=== PATIENT | female | born 1980 | race Asian ===

== ENCOUNTER 2022-01-02 14:10 | Outpatient (CLI) | payer BC, SELFPAY ==
[2022-01-02 14:25] LABS: Chloride* 104 mmol/L (96-114)
[2022-01-02 14:26] LABS: Sodium* 136 mmol/L (135-149)
[2022-01-02 14:28] LABS: Carbon Dioxide* 21 mmol/L (20-32); Cholesterol* 191 mg/dL (90-199); Creatinine* 0.5 mg/dL (0.5-1.5); Estimated Glomerular Filt Rate 122 ml/min
[2022-01-02 14:29] LABS: Blood Urea Nitrogen* 7 mg/dL (5-24); Calcium* 9.2 mg/dL (8.4-10.6); Glucose* 99 mg/dL (60-115); HDL Cholesterol* 93 mg/dL (>=50); LDL Cholesterol Calculated 66 mg/dL (<100); Triglycerides* 158 mg/dL (40-149)
== END 2022-01-02 14:11 | disposition home or self-care (01) ==
PROVIDERS: PCP Physician Assistant Medical; Visit Provider Physician Assistant Medical
DX: Z01.419 Encounter for gynecological examination (general) (routine) without abnormal findings (principal); Z13.6 Encounter for screening for cardiovascular disorders
CPT/HCPCS: 80048; 80061

== ENCOUNTER 2023-01-08 10:06 | Outpatient (CLI) | payer BC, SELFPAY | END 2023-01-08 10:07 | disposition home or self-care (01) | LOC: NFLDREF 01-11 21:52 | PROVIDERS: PCP Physician Assistant Medical; Referring Provider Physician Assistant Medical; Visit Provider Physician Assistant Medical | DX: E05.90 Thyrotoxicosis, unspecified without thyrotoxic crisis or storm (principal); E86.0 Dehydration; R50.9 Fever, unspecified; R00.0 Tachycardia, unspecified | CPT/HCPCS: 80053; 80061; 84443; 87086 ==

== ENCOUNTER 2023-01-20 13:19 | Emergency (ER) | payer BC, SELFPAY ==
[2023-01-20 13:30] VITALS: BP 127/94; PULSE 92; RESP 16; TEMP 36.6; O2SAT 98; BMI 27.5
[2023-01-20] MEDS: LACTATED RINGERS 1000 ML 1,000 ML IV (14:10)
[2023-01-20] MEDS: MECLIZINE HCL 25 MG TABLET PO (14:10)
[2023-01-20] MEDS: diphenhydrAMINE 50 MG/ML inj 25 MG IVP (14:10)
[2023-01-20] MEDS: KETOROLAC 15 MG/ML inj IVP (14:10)
[2023-01-20] MEDS: METOCLOPRAMIDE HCL 5 MG/ML INJ 10 MG IVP (14:11)
--- NOTE | 2023-01-20 15:00 | ED_ITS ---
HPI - General Adult General Date Seen: 01/20/23 Chief complaint: Dizziness/Vertigo Stated complaint: Dizzy, lightheaded Time Seen by Provider: 01/20/23 13:44 Source: patient Mode of arrival: ambulatory Limitations: no limitations History of Present Illness HPI narrative: Patient is a 42-year-old female with no pertinent medical problems presenting for dizziness and headache. She states last night she started having episodic dizziness when she stands and moves suddenly. When she sits still she is having no symptoms in the symptoms are also intermittent even when she is up moving around. States symptoms started gradually. Patient states symptoms persisted today now she is also having headache. She describes as band around her head that starts in the back of her head. The states she has had headaches like this before. Currently she does not feel dizzy in her bed. She does note a couple weeks goes she had a upper respiratory infection. She was COVID/flu/RSV negative at that time. The fatigue has persisted. Denies fevers, chills, chest pain, shortness of breath, lightheadedness, abdominal pain, nausea/vomiting. Related Data Previous Rx's Medication Instructions Recorded albuterol sulfate 90 mcg/actuation 2 puff inhalation Q6H PRN 01/08/23 aerosol inhaler (Ventolin HFA) shortness of breath or wheezing #8.5 grams codeine 10 mg-guaifenesin 100 mg/5 10 ml PO Q4-6H PRN cough #473 mL 01/08/23 mL oral liquid doxycycline hyclate 100 mg tablet 100 mg PO BID #20 tabs 01/11/23 prednisone 20 mg tablet See Rx Instructions PO QDAY #18 01/11/23 tabs meclizine 25 mg tablet 25 mg PO BID-QID PRN dizziness #14 01/20/23 tabs Allergies Allergy/AdvReac Type Severity Reaction Status Date / Time No Known Drug Allergies Allergy Verified 01/11/23 10:10 Review of Systems Status of ROS: Reports: 10 or more systems reviewed and unremarkable except as noted in History and below PFSH PFS Medical History Family history of breast cancer ?Z80.3 - Family history of malignant neoplasm of breast (ICD-10) Hypertension affecting ?O16.9 - Unspecified maternal hypertension, unspecified trimester (ICD-10) Family History Maternal Grandmother Breast cancer Aunt Breast cancer Sister Breast cancer Family/Other Diabetes Thyroid disease Epilepsy Social History Narrative: , nonsmoker What is your current living situation?: I presently have a place to live Problems where you live: no known problems In the past 12 months, utilities in danger of being shut off: no In past 12 months, lack of transportation kept you from medical appts, meetings, work, or getting things needed for daily living: no In the past 12 mos, have been you worried that your food would run out before you had money to buy more?: never true Smoking Status: Never smoker Do you use any of these nicotine containing products: None Second hand tobacco smoke exposure: No How often do you have a drink containing alcohol: monthly or less How many standard drinks containing alcohol do you have on a typical day: 1 or 2 How often do you have six or more drinks on one occasion: Never AUDIT-C Alcohol total score: 1 Non-prescribed substance use: denies use How often does anyone, including family, friends and others, physically hurt you : never How often does anyone, including family, friends and others, insult or talk down to you: never How often does anyone, including family, friends and others, threaten you with harm: never How often does anyone, including family, friends and others, scream or curse at you: never Little interest or pleasure in doing things: several days Feeling down, depressed, or hopeless: several days service: No Exam Narrative: Exam Narrative: Const: Well-nourished, Well-developed, in no distress Eyes: PERRL, no conjunctival injection, and symmetrical lids HENT: Atraumatic external nose and ears. Moist mucous membranes. Neck: Symmetric, trachea midline, No thyromegaly. CVS: RRR, No murmurs or gallops. Peripheral pulses 2+ and equal in all extremities RESP: Unlabored respiratory effort. Clear to auscultation bilaterally. GI: Nontender/Nondistended, No rebound or guarding. MSK:Extremities w/o deformity, Normal Active ROM Skin: Warm, Dry. No rashes or lesions. Neuro: Normal Muscle tone, No focal neurological deficits. Psych: Awake, Alert, & Oriented x3. Appropriate mood and affect. Const: Vital Signs, click to edit/add: Vital Signs - 24 hr 01/20/23 13:30 Temperature 98 F Pulse Rate [Femora l] 92 Respiratory Rate 16 Blood Pressure [Ri ght Upper Arm] 127/94 H Pulse Oximetry 98 Oxygen Delivery Me thod Room Air Course Vital Signs Vital signs: Initial Vital Signs Temperature 98 F 01/20/23 13:30 Temperature Source Temporal Artery Scan 01/20/23 13:30 Pulse Rate 92 01/20/23 13:30 Pulse Rhythm Regular 01/20/23 13:30 Respiratory Rate 16 01/20/23 13:30 Blood Pressure 127/94 H 01/20/23 13:30 Blood Pressure Mean 105 01/20/23 13:30 Blood Pressure Position Supine 01/20/23 13:30 Pulse Oximetry 98 01/20/23 13:30 Oxygen Delivery Method Room Air 01/20/23 13:30 Vital Signs Temperature 98 F 01/20/23 13:30 Pulse Rate 92 01/20/23 13:30 Respiratory Rate 16 01/20/23 13:30 Blood Pressure 127/94 H 01/20/23 13:30 Pulse Oximetry 98 01/20/23 13:30 Oxygen Delivery Method Room Air 01/20/23 13:30 Temperature 98 F 01/20/23 13:30 Pulse Rate 92 01/20/23 13:30 Respiratory Rate 16 01/20/23 13:30 Blood Pressure 127/94 H 01/20/23 13:30 Pulse Oximetry 98 01/20/23 13:30 Oxygen Delivery Method Room Air 01/20/23 13:30 Medications Administered Medications: Discontinued Medications Generic Name Dose Route Start Last Admin Trade Name Freq PRN Reason Stop Dose Admin Diphenhydramine HCl 25 mg 01/20/23 13:51 01/20/23 14:10 Diphenhydramine 50 Mg/Ml Inj IVP 01/20/23 13:52 25 mg ONCE ONE Administration Lactated Ringer's 1,000 mls @ 1,000 mls/hr 01/20/23 13:51 01/20/23 14:10 Lactated Ringers 1000 Ml IV 01/20/23 14:50 1,000 mls/hr .Q1H ONE Administration Ketorolac Tromethamine 15 mg 01/20/23 13:51 01/20/23 14:10 Ketorolac 15 Mg/Ml Inj IVP 01/20/23 13:52 15 mg ONCE ONE Administration Meclizine HCl 25 mg 01/20/23 13:51 01/20/23 14:10 Meclizine Hcl 25 Mg Tablet PO 01/20/23 13:52 25 mg ONCE ONE Administration Metoclopramide HCl 10 mg 01/20/23 13:51 01/20/23 14:11 Metoclopramide Hcl 5 Mg/Ml Inj IVP 01/20/23 13:52 10 mg ONCE ONE Administration Medical Decision Making MDM Narrative Medical decision making narrative: Patient is a 42-year-old female presenting emergency department for dizziness that is intermittent and headache. The headache sounds like a tension headache no treated with a migraine cocktail. This includes a L of fluids, Toradol, Reglan, Benadryl. Her dizziness will give her a dose of meclizine. Symptoms seem like they could be related to vestibular neuritis. She is not having any hearing issues but with a recent upper respiratory infection she could it does make the superior neuritis higher on my differential. Labyrinthitis seems unlikely considered there is no hearing problems. I do not believe we need head imaging at this time. After the medications she is feeling much better. Patient can be discharged home and she agrees with this plan Discharge Plan Discharge Clinical Impression: Dizziness Patient Disposition: Home, Self-Care Condition: Stable Instructions: Dizziness (ED) Additional Instructions: I believe symptoms are secondary to vestibular neuritis which is a viral infection of the inner ear that affects her balance. Symptoms will go away on their own. In the meantime will give you meclizine to help with with dizziness. Stay well hydrated and take Tylenol and ibuprofen for headache. Prescriptions: New meclizine 25 mg tablet 25 mg PO BID-QID PRN (Reason: dizziness) Qty: 14 0RF No Action codeine-guaifenesin 10-100 mg/5 mL liquid 10 ml PO Q4-6H PRN (Reason: cough) Qty: 473 0RF albuterol sulfate [Ventolin HFA] 90 mcg/actuation HFA aerosol inhaler 2 puff inhalation Q6H PRN (Reason: shortness of breath or wheezing) Qty: 8.5 12RF Rx Instructions: dispense whichever albuterol inhaler is covered doxycycline hyclate 100 mg tablet 100 mg PO BID Qty: 20 0RF prednisone 20 mg tablet See Rx Instructions PO QDAY Qty: 18 0RF Rx Instructions: 60mg daily for 3 days, 40mg daily for 3 days, 20mg daily for 3 days. Follow Up/Referrals: Rickey Perez PA-C [Primary Care Provider] - Stand Alone Forms: [facility] Info Instructions
== END 2023-01-20 15:19 | disposition home or self-care (01) ==
PROVIDERS: Emergency Provider Student in an Organized Health Care Education/Training Program; PCP Physician Assistant Medical
DX: R42 Dizziness and giddiness (principal)
CPT/HCPCS: 96361; 96374; 96375; 99283; 99284; A9270; J1200; J1885; J2765; J7120

== ENCOUNTER 2023-03-27 16:30 | Outpatient (CLI) | payer BC, SELFPAY ==
--- NOTE | 2023-03-27 16:40 | CRLHL7_ITS ---
For Patients: As a result of the Century Cures Act, medical imaging exams and procedure reports are released immediately into your electronic medical record. You may view this report before your referring provider. If you have questions, please contact your health care provider. BILATERAL SCREENING MAMMOGRAM WITH COMPUTER-AIDED DETECTION AND TOMOSYNTHESIS TECHNIQUE: CC and MLO views were obtained. These mammographic images have been obtained using full-field digital technique. These mammographic images were interpreted with the benefit of computer-aided detection. Breast Tomosynthesis was used in this interpretation. COMPARISON FILM: 03/17/20. FINDINGS: The breasts are heterogeneously dense, which may obscure small masses. IMPRESSION: There is no radiographic evidence for malignancy. ASSESSMENT: BI-RADS Category 1: Negative RECOMMENDATION: Routine screening mammogram in 1 year. A lay language report of this examination will be provided to the patient. Kaleb Mccarthy M.D. Diagnostic Radiologist [email or web address] SP/Dictated by: Kaleb Mccarthy MD @ 03/28/2023 1:25:00 PM (Electronically Signed)
== END 2023-03-27 16:31 | disposition home or self-care (01) ==
LOC: MAMMO 16:31
PROVIDERS: PCP Physician Assistant Medical; Visit Provider Physician Assistant Medical
DX: Z12.31 Encounter for screening mammogram for malignant neoplasm of breast (principal); R92.2 Inconclusive mammogram
CPT/HCPCS: 77063; 77067

== ENCOUNTER 2023-09-10 16:25 | Emergency (ER) | payer BC, SELFPAY ==
[2023-09-10 16:29] VITALS: BP 136/86; PULSE 108; RESP 18; TEMP 38.3; O2SAT 98; BMI 27.5
--- NOTE | 2023-09-10 17:07 | ED_ITS ---
HPI - General Adult General Chief complaint: Headache/Migraine Stated complaint: headache, dizziness, nausea, eye pain Time Seen by Provider: 09/10/23 16:58 History of Present Illness HPI narrative: headache since yesterday that won't go away. never had anything like this. jf etimes gets migraines and excedrin usually helps but did not this time. can 't make sudden movements otherwise gets dizzy. nausea. bp getting higher at home. little bit of chills. 42-year-old woman presenting to the emergency department with concern of a headache. Seems to be around both eyes but also had the back of her head. She notes a history of ?migraines? but has not formally been diagnosed with or mother does suffer from migraines. She herself normally resolves these headaches which are generally more mild and like today accompanied with nausea. Does not have a sore throat. Does not have sinus problems. Does not feel agree ears are full. Temperatures measured at 101 on triage. She has felt a little chilled. She does mention a little dysuria as well. Is not reporting any abdominal pain. She did dry Excedrin and acetaminophen less dosed today as well. Does have a sense of delay or any wooziness with movements particularly when she goes to sit up. Related Data Previous Rx's ?Medication ?Instructions ?Recorded meclizine 25 mg tablet 25 mg PO TID PRN dizziness #30 tabs 09/10/23 Allergies Allergy/AdvReac Type Severity Reaction Status Date / Time No Known Drug Allergies Allergy Verified 06/15/23 14:49 Review of Systems Status of ROS: Reports: 6 or more systems reviewed and unremarkable except as noted in History and below [facility] Medical History Hypertension affecting ?O16.9 - Unspecified maternal hypertension, unspecified trimester (ICD-10) Family History Maternal Grandmother Breast cancer Aunt Breast cancer Sister Breast cancer Family/Other Diabetes Thyroid disease Epilepsy Social History Narrative: , nonsmoker What is your current living situation?: I presently have a place to live Problems where you live: no known problems In the past 12 months, utilities in danger of being shut off: no In past 12 months, lack of transportation kept you from medical appts, meetings, work, or getting things needed for daily living: no In the past 12 mos, have been you worried that your food would run out before you had money to buy more?: never true Smoking Status: Never smoker Do you use any of these nicotine containing products: None Second hand tobacco smoke exposure: No How often do you have a drink containing alcohol: monthly or less How many standard drinks containing alcohol do you have on a typical day: 1 or 2 How often do you have six or more drinks on one occasion: Never AUDIT-C Alcohol total score: 1 Non-prescribed substance use: denies use How often does anyone, including family, friends and others, physically hurt you : never How often does anyone, including family, friends and others, insult or talk down to you: never How often does anyone, including family, friends and others, threaten you with harm: never How often does anyone, including family, friends and others, scream or curse at you: never Little interest or pleasure in doing things: several days Feeling down, depressed, or hopeless: several days service: No Exam Narrative: Exam Narrative: Pleasant. Looks as though she feels little uncomfortable. Transitions without significant difficulty. Cranial nerves 2-12 are intact. Appears a little photophobic. Pupils are equal. There is no nystagmus. Full strength throughout. Well-perfused. No facial swelling erythema. Oropharynx is without erythema. Neck is supple without lymphadenopathy. Heart in elevated rate and regular rhythm. Abdomen soft and nontender. She is sore to palpation in the paracervical musculature and a little bit of the medial trapezius bilaterally. Const: Vital Signs, click to edit/add: Vital Signs - 24 hr 09/10/23 16:29 Temperature 101 F H Pulse Rate [Pulse Oximeter] 108 H Respiratory Rate 18 Blood Pressure [Ri ght Upper Arm] 136/86 Pulse Oximetry 98 Oxygen Delivery Me thod Room Air Documenting provider has reviewed patient's vital signs: yes Course Vital Signs Vital signs: Initial Vital Signs Temperature 101 F H 09/10/23 16:29 Temperature Source Temporal Artery Scan 09/10/23 16:29 Pulse Rate 108 H 09/10/23 16:29 Respiratory Rate 18 09/10/23 16:29 Blood Pressure 136/86 09/10/23 16:29 Blood Pressure Mean 102 09/10/23 16:29 Pulse Oximetry 98 09/10/23 16:29 Oxygen Delivery Method Room Air 09/10/23 16:29 Vital Signs Temperature 101 F H 09/10/23 16:29 Pulse Rate 108 H 09/10/23 16:29 Respiratory Rate 18 09/10/23 16:29 Blood Pressure 136/86 09/10/23 16:29 Pulse Oximetry 98 09/10/23 16:29 Oxygen Delivery Method Room Air 09/10/23 16:29 Temperature 97.2 F L 09/10/23 18:49 Pulse Rate 108 H 09/10/23 16:29 Respiratory Rate 18 09/10/23 16:29 Blood Pressure 109/56 L 09/10/23 18:49 Pulse Oximetry 98 09/10/23 16:29 Oxygen Delivery Method Room Air 09/10/23 16:29 Medications Administered Medications: Discontinued Medications Generic Name Dose Route Start Last Admin Trade Name Freq PRN Reason Stop Dose Admin Sodium Chloride 1,000 mls @ 1,000 mls/hr 09/10/23 17:18 09/10/23 19:26 0.9 % Sodium Chloride 1000 Ml IV 09/10/23 18:17 Infused .Q1H ONE Infusion Ketorolac Tromethamine 30 mg 09/10/23 17:18 09/10/23 17:38 Ketorolac 30 Mg/Ml Inj IVP 09/10/23 17:19 30 mg ONCE ONE Administration Ondansetron HCl 4 mg 09/10/23 17:18 09/10/23 17:39 Ondansetron 2 Mg/Ml Inj IVP 09/10/23 17:19 4 mg ONCE ONE Administration Medical Decision Making [facility] Narrative Medical decision making narrative: Differential for headache does include meningitis although I do not think there are significant meningeal symptoms. I think the delay in equilibrium that she experiences with movement is more likely related to headache or inner ear than central. Would suspect more nonspecific viral etiology contributing this headache in somebody prone to them. Has already been swabbed for COVID influenza with results still pending. She would like urinalysis though this dysuria might also be related to apparent fever. Initiating IV fluids ketorolac Zofran. Screen with urinalysis as requested. On review of records from January 2023 had similar presentation Overall improved with treatments as noted above. Labs are reassuring. See patient discharge plan for further discussion Lab Data Lab results reviewed: Yes I reviewed the patient's lab results Labs: Lab Results 09/10/23 09/10/23 Range/Units 16:36 17:18 Urine Color Yellow (Yellow) Urine Appearance Clear (Clear) Urine pH 7.5 (5.0-8.5) Ur Specific [place] 1.015 (1.000-1.030) Urine Protein Negative (Negative) Urine Glucose (UA) Negative (Negative) Urine Ketones Negative (Negative) Urine Blood Negative (Negative) Urine Nitrite Negative (Negative) Urine Bilirubin Negative (Negative) Urine Urobilinogen 0.2 (0.2-1.0) Ur Leukocyte Esterase Negative (Negative) Urine RBC 0-2 (0-2) Urine WBC 0-2 (0-5) Ur Squamous Epith Cells None (None-Few) Urine Bacteria None (None) SARS-CoV-2 (PCR) Negative SARS-CoV-2 (Negative) Influenza Type A (PCR) Negative PCR FLU A (Negative) Influenza Type B (PCR) Negative PCR FLU B (Negative) RSV (PCR) Negative PCR RSV (Negative) Discharge Plan Discharge Clinical Impression: Fever, Headache Patient Disposition: Home w/ Parent or Adult Condition: Improved Additional Instructions: This dizziness or wooziness that you're describing might be related to some inner ear inflammation. You might benefit from taking meclizine 2-3 times daily over the next few days if it does not make you too tired. Can take up to 800 mg ibuprofen or up to 1000 mg of acetaminophen per dose. Be seen for marked increase in symptoms, new and focal weakness. Focus on hydration. Rest. Prescriptions: New meclizine 25 mg tablet 25 mg PO TID PRN (Reason: dizziness) Qty: 30 0RF Follow Up/Referrals: Rickey Perez PA-C [Primary Care Provider] - Stand Alone Forms: [facility] Info Instructions
[2023-09-10 17:23] LABS: PCR FLU A Negative PCR FLU A (Negative); PCR FLU B Negative PCR FLU B (Negative); PCR RSV Negative PCR RSV (Negative); SARS PCR* Negative SARS-CoV-2 (Negative)
[2023-09-10] MEDS: KETOROLAC 30 MG/ML inj IVP (17:38)
[2023-09-10] MEDS: 0.9 % SODIUM CHLORIDE 1000 ml 1,000 ML IV (17:38)
[2023-09-10] MEDS: ONDANSETRON 2 MG/ML inj 4 MG IVP (17:39)
[2023-09-10 17:58] LABS: Appearance Urine Clear (Clear); Bilirubin Urine Negative (Negative); Blood Urine Negative (Negative); Color Urine Yellow (Yellow); Glucose Urine Negative (Negative); Ketones Urine Negative (Negative); Leukocyte Esterase Urine Negative (Negative); Nitrite Urine Negative (Negative); Protein Urine Negative (Negative); Specific Gravity Urine 1.015 (1.000-1.030); Urobilinogen Urine 0.2 (0.2-1.0); pH Urine 7.5 (5.0-8.5)
[2023-09-10 18:12] LABS: RBC Urine 0-2 (0-2); WBC Urine 0-2 (0-5)
[2023-09-10 18:49] VITALS: BP 109/56; TEMP 36.2
== END 2023-09-10 19:44 | disposition home or self-care (01) ==
PROVIDERS: Emergency Provider Family Medicine; PCP Physician Assistant Medical
DX: R50.9 Fever, unspecified (principal); R51.9 Headache, unspecified
CPT/HCPCS: 81001; 87631; 96374; 96375; 99283; 99284; J1885; J2405; J7030

== ENCOUNTER 2023-12-13 08:07 | Outpatient (CLI) | payer BC, SELFPAY | END 2023-12-13 08:08 | disposition home or self-care (01) | LOC: NFLDREF 12-14 09:28 | PROVIDERS: PCP Physician Assistant Medical; Referring Provider Physician Assistant Medical; Visit Provider Physician Assistant Medical | DX: R39.9 Unspecified symptoms and signs involving the genitourinary system (principal); N89.8 Other specified noninflammatory disorders of vagina; N39.0 Urinary tract infection, site not specified; B37.41 Candidal cystitis and urethritis; N30.01 Acute cystitis with hematuria | CPT/HCPCS: 87086; 87186 ==

== ENCOUNTER 2024-01-15 07:43 | Outpatient (CLI) | payer BC, SELFPAY | END 2024-01-15 07:44 | disposition home or self-care (01) | LOC: NFLDREF 01-18 20:43 | PROVIDERS: PCP Physician Assistant Medical; Referring Provider Physician Assistant Medical; Visit Provider Physician Assistant Medical | DX: Z00.00 Encounter for general adult medical examination without abnormal findings (principal); E05.90 Thyrotoxicosis, unspecified without thyrotoxic crisis or storm; R30.0 Dysuria | CPT/HCPCS: 80048; 80061; 84443; 87086 ==

== ENCOUNTER 2024-01-25 16:59 | Outpatient (CLI) | payer BC, SELFPAY | END 2024-01-25 17:00 | disposition home or self-care (01) | LOC: NFLDREF 01-27 14:26 | PROVIDERS: PCP Physician Assistant Medical; Referring Provider Physician Assistant Medical; Visit Provider Family Medicine | DX: N89.8 Other specified noninflammatory disorders of vagina (principal); B99.9 Unspecified infectious disease; N39.0 Urinary tract infection, site not specified; B37.9 Candidiasis, unspecified | CPT/HCPCS: 87086; 87186 ==

== ENCOUNTER 2024-06-16 08:06 | Outpatient (CLI) | payer BC, SELFPAY | END 2024-06-16 08:07 | disposition home or self-care (01) | LOC: NFLDREF 06-18 05:59 | PROVIDERS: PCP Physician Assistant Medical; Referring Provider Physician Assistant Medical; Visit Provider Physician Assistant Medical | DX: N39.0 Urinary tract infection, site not specified (principal); B96.20 Unspecified Escherichia coli [E. coli] as the cause of diseases classified elsewhere; E05.90 Thyrotoxicosis, unspecified without thyrotoxic crisis or storm | CPT/HCPCS: 84443; 87086 ==

== ENCOUNTER 2024-11-21 12:58 | Outpatient (CLI) | payer BC, SELFPAY ==
--- NOTE | 2024-11-21 13:00 | CRLHL7_ITS ---
For Patients: As a result of the Cures Act, medical imaging exams and procedure reports are released immediately into your electronic medical record. You may view this report before your referring provider. If you have questions, please contact your health care provider. INDICATION: BILATERAL SCREENING MAMMOGRAM, ASYMPTOMATIC 44 Y/O FEMALE COMPARISON: 03/27/2023, 03/17/2020 TECHNIQUE: Digital mammogram in CC and MLO projections including computer-aided detection (CAD) and tomosynthesis. BREAST COMPOSITION: The breasts are heterogeneously dense, which may obscure small masses. FINDINGS: No suspicious findings. ASSESSMENT: BI-RADS 1 Negative RECOMMENDATION: Annual screening mammogram. A lay language report of this examination will be provided to the patient. Dictated by: Karley Loredo MD @ 11/24/2024 20:15:19 (Electronically Signed)
== END 2024-11-21 12:59 | disposition home or self-care (01) ==
LOC: MAMMO 12:58
PROVIDERS: PCP Physician Assistant Medical; Visit Provider Physician Assistant Medical
DX: Z12.31 Encounter for screening mammogram for malignant neoplasm of breast (principal); R92.333 Mammographic heterogeneous density, bilateral breasts
CPT/HCPCS: 77063; 77067

== ENCOUNTER 2024-12-16 09:45 | Outpatient (CLI) | payer BC, SELFPAY | END 2024-12-16 09:46 | disposition home or self-care (01) | LOC: NFLDREF 01-01 23:12 | PROVIDERS: PCP Physician Assistant Medical; Referring Provider Physician Assistant Medical; Visit Provider Physician Assistant Medical | DX: E05.90 Thyrotoxicosis, unspecified without thyrotoxic crisis or storm (principal); Z01.84 Encounter for antibody response examination; Z11.1 Encounter for screening for respiratory tuberculosis; Z13.6 Encounter for screening for cardiovascular disorders; Z13.29 Encounter for screening for other suspected endocrine disorder; Z11.59 Encounter for screening for other viral diseases | CPT/HCPCS: 80053; 80061; 84443; 86480; 86658; 86706; 86735; 86765; 86787 ==

== ENCOUNTER 2025-02-03 11:52 | Outpatient (CLI) | payer BC, SELFPAY ==
--- NOTE | 2025-02-03 12:15 | CRLHL7_ITS ---
For Patients: As a result of the Century Cures Act, medical imaging exams and procedure reports are released immediately into your electronic medical record. You may view this report before your referring provider. If you have questions, please contact your health care provider. INDICATION: Chronic back pain. TECHNIQUE: Lumbar spine MRI was performed without the administration of intravenous contrast. COMPARISON: : Abdomen and pelvis CT 12/17/2017. FINDINGS: There is normal lumbar alignment. No STIR hyperintensity to suggest an acute fracture or ligamentous injury. No suspicious marrow replacement. The vertebral body heights are maintained. Degenerative disc changes at L5-S1 including disc space height loss with endplate and bone marrow changes. The visualized spinal cord and cauda equina nerve roots are within normal limits. Significant findings by level: T12-L1: No significant spinal canal or neural foraminal narrowing. L1-L2: No significant spinal canal or neural foraminal narrowing. L2-L3: No significant spinal canal or neural foraminal narrowing. L3-L4: No significant spinal canal or neural foraminal narrowing. L4-L5: No significant spinal canal or neural foraminal narrowing. L5-S1: Effacement of the right lateral recess with impingement on the descending right S1 nerve root due to right subarticular disc protrusion. No significant spinal canal or neural foraminal narrowing. The visualized soft tissues are within normal limits. IMPRESSION: 1. No evidence of acute fracture or malalignment. 2. Degenerative disc changes at L5-S1. 3. At L5-S1, a right subarticular disc protrusion results in effacement of the right lateral recess with impingement of the descending right S1 nerve root. 4. No significant spinal canal or neural foraminal narrowing. Dictated by Anil Palacios MD @ 02/04/2025 7:41:22 PM (Electronically Signed)
== END 2025-02-03 11:53 | disposition home or self-care (01) ==
LOC: MRI 11:53
PROVIDERS: PCP Physician Assistant Medical; Visit Provider Physician Assistant Medical
DX: M51.17 Intervertebral disc disorders with radiculopathy, lumbosacral region (principal); M51.360 Other intervertebral disc degeneration, lumbar region with discogenic back pain only
CPT/HCPCS: 72148